=== PATIENT | male | born 1975 ===

== ENCOUNTER 2024-11-16 06:26 | Day surgery (SDC) | payer BC, SELFPAY ==
[2024-11-16 07:57] LABS: Glucose - Point of Care 147 mg/dl (70-99)
== END 2024-11-16 08:49 | disposition home or self-care (01) ==
LOC: GI 06:26
PROVIDERS: ATTENDING PHYSICIAN Internal Medicine Gastroenterology
DX: Z12.11 Encounter for screening for malignant neoplasm of colon (principal); D12.3 Benign neoplasm of transverse colon; K57.30 Diverticulosis of large intestine without perforation or abscess without bleeding; K64.8 Other hemorrhoids; Z86.0100 Personal history of colon polyps, unspecified
CPT/HCPCS: 45380; 88305; 82962